=== PATIENT | female | born 1950 | race Caucasian/White ===

== ENCOUNTER 2016-11-08 17:07 | Emergency (ER) | payer OTHER, MEDICARE, MEDICAID ==
[2016-11-08 17:21] VITALS: BP 114/69
--- NOTE | 2016-11-08 17:22 | EDPHY ---
H & P Stated Complaint: fell a few weeks ago and has right hand pain Time Seen by Provider: 11/08/16 17:21 - Medical/Surgical History Hx Asthma: No Hx Chronic Respiratory Disease: No Hx Diabetes: No Hx Cardiac Disease: No Hx Renal Disease: No Hx Cirrhosis: No Hx Alcoholism: No Hx HIV/AIDS: No Hx Splenectomy or Spleen Trauma: No Other PMH: HYPOTHYROIDISM. THYROID CA/anal cancer. C-SECTIONS. tremors - Social History Smoking Status: Never smoked Constitutional: Initial Vital Signs Temperature (C) 37.2 C 11/08/16 17:17 Heart Rate 92 11/08/16 17:17 Respiratory Rate 16 11/08/16 17:17 Blood Pressure 114/69 11/08/16 17:17 O2 Sat (%) 93 11/08/16 17:17 O2 Delivery Mode Room Air Allergies/Adverse Reactions: No Known Allergies Allergy (Verified 11/08/16 17:15) Home Medications: Medication Instructions Recorded Levothyroxine 11/25/13 Medical Decision Making ED Course/Re-evaluation: CHIEF COMPLAINT: Right hand pain HISTORY OF PRESENT ILLNESS: This patient is a 66 year old female arriving today complaining of right hand pain secondary to falling after being accidentally tripped by her dog three weeks ago. She reports that at the time, her hand turned black. She states she did not seek care initially and has "let it go for weeks". She states she is concerned that the pain has not yet resolved. She reports her pain is worst when she is trying to perform fine motor activities with her hand or otherwise maneuver it. She denies other recent traumas or recent illness, or other associated symptoms. REVIEW OF SYSTEMS: A 10 point review of systems was performed and is negative with the exception of the elements mentioned in the history of present illness. PHYSICAL EXAM: HR, BP, O2 Sat, RR. Temp noted General Appearance: Alert, well hydrated, appropriate, and non-toxic appearing. Head: Atraumatic without scalp tenderness or obvious injury Eyes: Pupils equal, round, reactive to light and accommodation, EOMI, no trauma , no injection. Nose: Atraumatic, no rhinorrhea, clear. Throat: There is no erythema or exudates, no lesions, normal tonsils, mucus membranes moist. Neck: Supple, nontender, no lymphadenopathy. Respiratory: No retractions, no distress, no wheezes, and no accessory muscle use. Lungs are clear to auscultation bilaterally. Cardiovascular: Regular rate and rhythm, no murmurs, rubs, or gallops. Good capillary refill all extremities. Gastrointestinal: Abdomen is soft, nontender, non-distended, no masses, no rebound, no guarding, no peritoneal signs. Musculoskeletal: Ecchymosis to volar surface of right wrist. Normal active ROM of all extremities. Neurological: Alert, appropriate, and interactive. Nonfocal neuro exam. Skin: No rashes, good turgor, no nodules on palpation. Past medical history: Hypothyroidism. Thyroid cancer. Past surgical history: sections Family history: Noncontributory Social history: Nonsmoker, lives in [place]. DIFFERENTIAL DIAGNOSIS: Includes but not limited to: wrist sprain, strain, fracture, contusion. MEDICAL DECISION MAKING: This patient is a 66 year old female presenting with right hand pain secondary to a fall three weeks ago. Physical exam reveals ecchymosis to the volar surface of her right wrist. Plan for x-ray to rule out acute osseous abnormalities. X-ray is unremarkable. Plan to discharge home in good condition with a wrist splint to treat for sprain symptoms. Return precautions discussed. Referral to client solutions specialist given in case of unresolved or worsening symptoms. The patient is comfortable with this plan. Departure - Departure Disposition: Home, Routine, Self-Care Clinical Impression: Right wrist sprain Qualifiers: Encounter type: initial encounter Qualified Code(s): S63.501A - Unspecified sprain of right wrist, initial encounter Condition: Good Instructions: Wrist Sprain (ED) Additional Instructions: 1. Wear your Velcro wrist splint for the next two weeks, but take it off multiple times per day to flex and exercise your wrist. You should sleep wearing the splint. 2. Take Ibuprofen or Tylenol as directed below to treat pain or swelling. 3. Return to the Emergency Department for swelling, redness, heat, or numbness in the area, or other worsening condition. 4. We have referred you to our client solutions specialist hospital account liaison in case of symptoms unresolved or worsening in the next seven to ten days. Adult Pain Control: We recommend Acetaminophen (Tylenol) and Ibuprofen (Motrin,Advil) for pain control. When pain is severe, both drugs can be used at the same time, but at different intervals. Please note the time differences. Your dose is: Acetaminophen 650mg every 4 to 6 hours Ibuprofen 600mg every 6-8 hours with food Note: do not take Acetaminophen with Hydrocodone (Vicodin, Lortab) or Oycodone (Percocet). These medications also contain Acetaminophen. No more than 3000mg of Acetaminophen should be taken in 24 hours (for an adult). Referrals: Ted Bella MD [Medical Doctor] - As per Instructions Report Scribed for: Preston Pathak Report Scribed by: Mary Lou Beasley Date of Report: 11/08/16 Time of Report: 17:46
[2016-11-08 18:07] VITALS: PULSE 74; RESP 20; TEMP 98.2; O2SAT 95
== END 2016-11-08 18:03 | disposition home or self-care (01) ==
LOC: CED 17:07
DX: S63.501A Unspecified sprain of right wrist, initial encounter (principal); Z85.850 Personal history of malignant neoplasm of thyroid; Z85.048 Personal history of other malignant neoplasm of rectum, rectosigmoid junction, and anus; W01.0XXA Fall on same level from slipping, tripping and stumbling without subsequent striking against object, initial encounter
CPT/HCPCS: 73110; 99283; L3908

== ENCOUNTER → 2016-11-28 | Outpatient (CLI) | payer OTHER, MEDICARE, MEDICAID | LOC: CIMAGING 08:36 | PROVIDERS: ATTEND Family Medicine Sports Medicine | DX: Z12.31 Encounter for screening mammogram for malignant neoplasm of breast (principal) | CPT/HCPCS: G0202 ==

== ENCOUNTER → 2017-02-12 | Outpatient (CLI) | payer OTHER, MEDICARE, MEDICAID ==
[~2017-02-12] MED LIST: GADOBUTROL 10 ML VIAL IVP ONE
== END ==
LOC: FIMAGING 09:57
PROVIDERS: ATTEND Internal Medicine Hematology & Oncology
DX: D18.02 Hemangioma of intracranial structures (principal); R29.6 Repeated falls; F03.90 Unspecified dementia, unspecified severity, without behavioral disturbance, psychotic disturbance, mood disturbance, and anxiety
CPT/HCPCS: 70553; A9585

== ENCOUNTER 2017-12-06 17:32 | Emergency (ER) | payer OTHER, MEDICARE, MEDICAID ==
[2017-12-06] MEDS ORDERED: LET GEL TOPICAL 1 EA SYR TP ONE (17:52)
--- NOTE | 2017-12-06 17:59 | EDPHY ---
H & P Time Seen by Provider: 12/06/17 17:43 HPI/ROS: This patient was walking up 3 stairs firmer backyard into her home and room while carrying 2 gallons of paint when she tripped and fell causing a laceration to the lateral aspect of her left leg shortly prior to arrival. She is not certain if she sustained a laceration from the pain count from the stair. She denies any other injuries and reports loose skin pain which she describes as moderate. There is also moderate bleeding that persisted despite pressure prompting her visit for further evaluation. She came in by private vehicle driven by her sister. ROS: Constitutional: [place] well prior to the fall Neuro: She has a baseline benign essential tremor that is unchanged. She did not strike her head. No focal numbness tingling weakness. HEENT: No complaints musculoskeletal: No midline neck or back pain. No other extremity injuries. No leg pain. She walked after the laceration without difficulty. GI: No abdominal pain 5 point ROS is otherwise negative. Past Medical/Surgical History: Benign essential tremor Thyroid cancer and anal cancer. Patient reports some mild cognitive difficulties the pertaining to memory as a side effect of her radiation and chemotherapy. Smoking Status: Never smoked Physical Exam: Physical Exam Vital signs are normal. General: No acute distress HEENT: Atraumatic. Eyes: Pupils equal and react to light. Extraocular motions are intact. Lungs: No respiratory distress. Cardiac: Brisk capillary refill is intact throughout. Pulses are 2+ and symmetric in the affected extremity. Skin: No rash or pallor. Patient has a 11 cm annular shaped laceration-full- thickness to the left lateral leg with mild bleeding. Subcutaneous tissues evident. No other structures injured. Neuro: Alert and oriented x3 with no sensorimotor deficits. Constitutional: Initial Vital Signs Temperature (C) 37.4 C 12/06/17 17:44 Heart Rate 71 12/06/17 17:44 Respiratory Rate 16 12/06/17 17:44 Blood Pressure 154/106 H 12/06/17 17:44 O2 Sat (%) 93 12/06/17 17:44 O2 Delivery Mode Room Air Allergies/Adverse Reactions: No Known Allergies Allergy (Verified 11/08/16 17:15) Home Medications: Medication Instructions Recorded Levothyroxine 11/25/13 MDM/Departure - MDM Procedures: The wound is 11 cm long full-thickness described in physical exam. The wound was copiously irrigated with saline. The wound was explored for foreign bodies and none were found. The wound was prepped and draped in the normal sterile fashion. The wound was anesthetized using a 50 50 mix of 0.5% Marcaine and 1% plain lidocaine, 27 gauge needle -10 mL with good effect. The edges were reapproximated using 4 0 Prolene -1 horizontal mattress suture and 30 running sutures with good hemostasis and cosmesis. The patient tolerated the procedure well. There were no complications. Medications Given: Discontinued Medications Tetracaine/Epinephrine/Lidocaine (Let Gel Topical) 1 ea TP EDNOW ONE Stop: 12/06/17 17:53 Last Admin: 12/06/17 18:00 Dose: 1 ea ED Course/Re-evaluation: Discussion: Uncomplicated laceration with no evidence of underlying bony injury or other complicating factors. - Depart Disposition: Home, Routine, Self-Care Clinical Impression: Leg laceration Qualifiers: Encounter type: initial encounter Laterality: left Qualified Code(s): S81.812A - Laceration without foreign body, left lower leg, initial encounter Condition: Fair Instructions: Care For Your Stitches (ED) Additional Instructions: Dx: leg laceration Plan: Keep the wound clean and dry for the next 2 days. After 2 days, then clean daily with warm soapy water Return for suture removal in 12 days. Tylenol if needed for pain Return sooner if he develops redness, discharge or other concerns for infection Referrals: Luis Miguel Michele MD [Primary Care Provider] - As per Instructions
[2017-12-06 19:25] VITALS: BP 134/85
== END 2017-12-06 19:25 | disposition home or self-care (01) ==
LOC: CED 17:32
PROC: 0HQLXZZ Repair Left Lower Leg Skin, External Approach (ICD-10-PCS; principal; 2017-12-06)
DX: S81.812A Laceration without foreign body, left lower leg, initial encounter (principal); W01.0XXA Fall on same level from slipping, tripping and stumbling without subsequent striking against object, initial encounter; Y99.8 Other external cause status; Y93.01 Activity, walking, marching and hiking; Z85.048 Personal history of other malignant neoplasm of rectum, rectosigmoid junction, and anus; Z85.850 Personal history of malignant neoplasm of thyroid

== ENCOUNTER 2017-12-13 10:06 | Emergency (ER) | payer OTHER, MEDICARE, MEDICAID ==
[2017-12-13 10:13] VITALS: BP 147/86
--- NOTE | 2017-12-13 10:17 | EDPHY ---
H & P Time Seen by Provider: 12/13/17 10:14 HPI/ROS: 67-year-old female presents for a wound check she was recently here for anterior left lower leg laceration which was repaired. She returns today with a small area of redness at wound edge. No fever or chills. No red streaks, no drainage. Review of systems As per HPI General no fever no chills no weakness HEENT no eye pain no eye discharge. No eye redness, no sore throat Respiratory no cough, no shortness of breath Musculoskeletal no myalgias, no joint pain Heme no easy bruising, no easy bleeding Endo no polyuria, no polydipsia Skin positive rashes, no pruritus Past Medical/Surgical History: hypothyroidism dementia Social History: no alcohol or drug use lives alone Smoking Status: Never smoked Physical Exam: 67 yo F non toxic appearance no acute distress nontoxic appearance, afebrile Atraumatic normocephalic Neck no JVD Lungs clear to auscultation, no respiratory distress Heart regular rate and rhythm Extremities no cyanosis clubbing edema except left lower extremity with sutured wound-no drainage, no swelling, small area of redness on upper wound edge Constitutional: Initial Vital Signs Temperature (C) 36.9 C 12/13/17 10:06 Heart Rate 84 12/13/17 10:06 Respiratory Rate 18 12/13/17 10:06 Blood Pressure 147/86 H 12/13/17 10:06 O2 Sat (%) 95 12/13/17 10:06 O2 Delivery Mode Room Air Allergies/Adverse Reactions: No Known Allergies Allergy (Verified 11/08/16 17:15) Home Medications: Medication Instructions Recorded Levothyroxine 11/25/13 Clindamycin HCl [Clindamycin] 300 mg PO TID 10 Days #30 cap 12/13/17 Medical Decision Making ED Course/Re-evaluation: Pt seen and evaluated for redness at edge of recently sutured wound. wound clenased , dressing applied-mepilex Imp Cannot rule out very early wound infection, versus redness of normal healing Plan Will place patient on antibiotics Advise recheck in 2-3 days Departure - Departure Disposition: Home, Routine, Self-Care Clinical Impression: Visit for wound check Condition: Good Instructions: Care For Your Stitches (ED) Referrals: NONE *PRIMARY CARE P,. [Primary Care Provider] - As per Instructions Prescriptions: Clindamycin HCl [Clindamycin] 300 mg PO TID 10 Days #30 cap
--- NOTE | 2017-12-13 18:22 | ASMTCMCOM ---
CM Note CM Note Notes: Pt presented to the Emergency Department for a wound check of a laceration on her leg that occurred on 12/06/17. Pt w/ concerns of redness around wound. History includes thyroid and anal cancer. 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 Pt lives alone. Pt's sister Kitty, , is her emergency contact and lives down the street from the pt. Call received from Reyna Shaver RN at [facility] with concerns regarding pt's safety. On both visits to the Emergency Department the pt's sister dropped the pt off at the curb and promptly left. Per Reyna, the sister has a leg injury that prevents her from accompanying the pt into the building. Per Reyna, the pt's discharge instructions have been reviewed both times with the sister, in her vehicle. Reyna reports that the pt's sister has been in contact with several people in an attempt to obtain more services. The sister is aware of the pt's increased needs. Reyna reports that the sister has contacted Constance at [facility] and Gilda at [facility] . Upon reviewing the chart there are no home care orders. There is reference to the sister wanting home care in Reyna's nursing note. This CM attempted to call [facility] to see if the pt is currently open with their services; awaiting call back. Call received from Sierra, Clinical Vice President Research for [facility] . Per Sierra, the pt is on their list to review tomorrow. Sierra unsure if they currently have home care orders or if they are still needed. Sierra to verify and to update CM on Thursday12/14/17. Call placed to Kitty to discuss pt's current situation. Kitty reports that she recently had leg surgery and has activity restrictions. She is not supposed to drive and has weight bearing limitations, which is why she has been unable to help the pt more. Per Kitty, the pt was diagnosed with dementia last year and has been gradually worsening over the past few months. The pt sustained a laceration after a fall carrying paint cans into the house. The pt received 31 stitches. Over the past few days the pt has been noncompliant with the management and care of her wound. The sister is very concerned that the pt won't take her newly prescribed antibiotics. The sister states that the pt cannot manage her leg and is concerned it will continue to worsen without skilled care. Discussed possibility of private duty help, Kitty states they cannot afford private pay services. Explained that home care can only visit pt 2-3 times/week and cannot see pt daily. Kitty informed she will need to work with Constance for additional services, if indicated. The pt is currently set up with [facility] three days/week for three hrs each day. The pt has previously received home care services from [facility] and they prefer this agency. The sister states that she has been in contact with Constance at [facility]. Constance recommended the pt see her PCP for home care orders. Kitty reports that she is unable to take the pt to see her PCP. CM asked if there was other family that could help. Per Kitty, the pt's son, Ty refuses to take her. Encouraged Kitty to call the pt's PCP, Dr. Michele, on Thursday12/14/17 to explain the current situation and to request home care orders, if indicated. Also encouraged Kitty, to call Constance with an update. This CM will forward this information along for further follow up on Thursday12/14/17. Date Signed: 12/13/2017 06:04 PM Electronically Signed By:Lesvia Ko RN
--- NOTE | 2017-12-14 12:19 | ASMTCMCOM ---
CM Note CM Note Notes: Follow up from CM note and patient visit on 12/13/17. See report/notes for details. I have spoken to Sierra at [facility] who tells this CM she that she is reaching out to patient's PCP, Dr. Michele regarding potental HH orders. I have LM at Dr. Michele's office as well . I have also LM with Constance at [facility] to inquire into current services and potential community resources which may be added for patient. This CM will follow up with patient and/or sister, Kitty after hearing back from above providers Date Signed: 12/14/2017 12:18 PM Electronically Signed By:Luli Bello RN
--- NOTE | 2017-12-14 16:55 | ASMTCMCOM ---
CM Note CM Note Notes: I have spoken with Tesha at [facility] and confirmed that a HH order was sent to [facility] for RN evaluation and wound care. I spoke with patient's sister Kitty who confirms that the first HH visit has been arranged for tomorrow at 1330. Kitty will continue to follow up with Constance at [facility] . Kitty also tells me that patient's son Ty will be moving in with patient January 06. Kitty informs me that she will likely be bringing patient back to the [facility] on Thursday and will once agian be unable to accompany patient inside (see prior notes from 12/13/17 visit), but will be available outside if needed Date Signed: 12/14/2017 04:54 PM Electronically Signed By:Luli Bello RN
--- NOTE | 2017-12-16 13:31 | ASMTCMCOM ---
CM Note CM Note Notes: Call back from Constance at [facility] received today (see CM note from 09/14/17). Constance confirms that she has had further contact with patient and/or patient's sister and has made a referral to APS to follow up as well Date Signed: 12/16/2017 01:31 PM Electronically Signed By:Luli Bello RN
== END 2017-12-13 10:28 | disposition home or self-care (01) ==
LOC: CED 10:06
DX: Z48.01 Encounter for change or removal of surgical wound dressing (principal)